=== PATIENT | male | born 1945 | race Caucasian/White ===

== ENCOUNTER 2017-06-11 09:48 | Emergency (ER) | payer OTHER ==
[~2017-06-11] VITALS: Ht 177.8 cm; Wt 68.0 kg
[~2017-06-11 09:48] MED LIST: ALL DAY ALLERGY10 MG PO; ALLOPURINOL100 M1 PO; AMLODIPINE BESYL5 M1 PO; ASPIRIN81 M4 PO; ATORVASTATIN CA20 M1 PO; ATORVASTATIN CA80 M1 PO; LISINOPRIL40 M1 PO; PLAVIX75 M1 PO; VITAMIN B COMP1 EACH PO; VITAMIN D1000 UNIT PO; XANAX0.25 M1 PO
[2017-06-11 09:51] VITALS: BP 172/91
--- NOTE | 2017-06-11 10:04 | ED ANIMAL BITE/WOUND CHECK ---
History of Present Illness General Chief Complaint: Suture Removal/Wound Recheck Stated Complaint: SUTURE REMOVAL Source: patient Exam Limitations: no limitations Vital Signs & Intake/Output Vital Signs & Intake/Output Vital Signs Date Time Temp Pulse Resp B/P B/P Pulse O2 O2 Flow FiO2 Mean Ox Delivery Rate 06/11 0951 98.2 91 18 172/91 98 Room Air Allergies Coded Allergies: Penicillins (Severe, ANAPHYLAXIS 02/03/17) Reconcile Medications Allopurinol 100 MG TABLET 1 TAB PO EOD URIC ACID (Reported) Alprazolam (Xanax) 0.25 MG TABLET 1 TAB PO DAILY NEEDED ANXIETY (Reported) Aspirin (Aspirin*) 81 MG TAB.CHEW 81 MG PO DAILY Stroke Atorvastatin Calcium 20 MG TABLET 1 TAB PO DAILY CHOLESTEROL (Reported) Atorvastatin Calcium 80 MG TABLET 1 TAB PO DAILY stroke Cetirizine HCl (All Day Allergy) 10 MG TABLET 1 TAB PO DAILY ALLERGIES ( Reported) Cholecalciferol (Vitamin D3) (Vitamin D) 1,000 UNIT TABLET 1 TAB PO DAILY SUPPLEMENT (Reported) Clopidogrel Bisulfate (Plavix) 75 MG TABLET 1 TAB PO DAILY stroke Lisinopril 40 MG TABLET 1 TAB PO DAILY BP (Reported) Vitamin B Complex 1 EACH CAPSULE 1 CAP PO DAILY SUPPLEMENT (Reported) Triage Note: 73 YO MALE TO TRIAGE FOR SUTURE REMOVAL FROM FINGER. Triage Nurses Notes Reviewed? yes Onset: Abrupt Duration: day(s): (10), better, continues in ED Timing: single episode today Injury Environment: home Is Injury an Animal Bite? No No Modifying Factors: none HPI: 72-year-old male past medical history of CVA presents for evaluation of suture removal. Patient had sutures placed to his left lateral fifth digit about 10 days ago after he sustained a laceration. He's been keeping the area covered and dry. He denies any pain discharge or spreading redness. He feels that everything is healing well. No numbness or tingling no fever. (Ernesto Lorenzana) Past History Travel History Traveled to [place] past 21 day No Medical History Any Pertinent Medical History? see below for history Neurological: CVA EENT: NONE Cardiovascular: hypertension, hyperlipidemia Respiratory: NONE Gastrointestinal: NONE Hepatic: NONE Renal: NONE Musculoskeletal: gout, HIGH URIC ACID LEVELS Psychiatric: anxiety Endocrine: NONE Blood Disorders: NONE Cancer(s): NONE [employer]ING [employer]SULTANT/Reproductive: NONE History of MRSA: No History of VRE: No History of CDIFF: No Tetanus Vaccine: 06/01/17 Surgical History Surgical History: non-contributory Psychosocial History Who do you live with Spouse Services at Home None What is your primary language Kinyarwanda Tobacco Use: Never used Family History Family History, If Any: MOTHER Myocardial infarction Hx Contributory? No (Ernesto Lorenzana) Review of Systems Review of Systems Constitutional: Reports: no symptoms. EENTM: Reports: no symptoms. Respiratory: Reports: no symptoms. Cardiovascular: Reports: no symptoms. GI: Reports: no symptoms. Genitourinary: Reports: no symptoms. Musculoskeletal: Reports: no symptoms. Skin: Reports: see HPI (LACERATION WITH SUTURES). Neurological/Psychological: Reports: no symptoms. Hematologic/Endocrine: Reports: no symptoms. Immunologic/Allergic: Reports: no symptoms. All Other Systems: Reviewed and Negative (Ernesto Lorenzana) Physical Exam Physical Exam General Appearance: well developed/nourished, no apparent distress, alert, awake Head: atraumatic, normal appearance Eyes: Bilateral: normal appearance. Ears, Nose, Throat: hearing grossly normal Neck: normal inspection, full range of motion Respiratory: no respiratory distress Extremities: normal range of motion, LEFT HAND FIFTH DIGIT. tHERE IS A 1 CM LACERATION WITH [address] ON THE PROXIMAL LATERAL SEGMENTOF THE LEFT FIFTH DIGIT. nO DISCHARGE OR REDNESS OR SWELLING. fULL RANGE OF MOTION OF THE DIGIT IS INTACT. nEUROVASCULAR SUPPLY IS INTACT rEFILL LESS THAN 2 SECONDS Neurologic/Psych: no motor/sensory deficits, awake, alert, oriented x 3, normal gait, normal mood/affect Skin: intact, normal color, warm/dry (Ernesto Lorenzana) Progress Differential Diagnosis: abscess, cellulitis, joint infection, tenosysnovitis Plan of Care: Patient seen and evaluated. He has 2 sutures that are clean dry and intact and the laceration to the lateral aspect of the left fifth digit. No signs of infection. Sutures were removed and Steri-Strips were placed over the wound. Advised patient to keep the area clean and dry keep covered when showering. [place] for signs of infection such as redness swelling discharge or pain. Tylenol for pain. Follow-up with primary care doctor in 2 or 3 days for another wound check. Return to the emergency department any concerns. Case discussed with and he agrees. (Ernesto Lorenzana) Departure Departure Disposition: HOME OR SELF CARE Condition: Stable Clinical Impression Primary Impression: Encounter for removal of sutures Referrals: Nathanael ARNETT,Nate Diehl (PCP/Family) Additional Instructions: Rest, keep the area clean and dry. The Steri-Strips will come off on their own in 3 or 4 days. Do not get them wet. [place] for signs of infection like redness swelling discharge or pain. Tylenol for pain. Make a follow-up with YOUr primary care doctor for a wound check next week. Monitor symptoms return with any concerns. Departure Forms: Customer Survey General Discharge Information (Ernesto Lorenzana) PA/CLINICAL DOCUMENTATION NURSE Co-Sign Statement Statement: ED Attending supervision documentation- x I saw and evaluated the patient. I have also reviewed all the pertinent lab results and diagnostic results. I agree with the findings and the plan of care as documented in the PA's/CLINICAL DOCUMENTATION NURSE's documentation. [] I have reviewed the ED Record and agree with the PA's/CLINICAL DOCUMENTATION NURSE's documentation. [] Additions or exceptions (if any) to the PAs/CLINICAL DOCUMENTATION NURSE's note and plan are summarized below: [] (Joseph ARNETT,Hank)
== END 2017-06-11 10:05 ==
LOC: ERH 09:48
DX: Z48.02 Encounter for removal of sutures (principal)